=== PATIENT | female | born 1975 | race African-American/Black ===

== ENCOUNTER 2019-04-15 09:53 | Emergency (ER) | payer OTHER ==
[~2019-04-15] VITALS: Ht 170.2 cm; Wt 132.9 kg
[~2019-04-15 09:53] MED LIST: CLEOCIN HCL150 MG PO
[2019-04-15] MEDS ORDERED: ATENOLOL 25 MG25 M1 PO (10:09)
[2019-04-15] MEDS ORDERED: LOSARTAN-HCTZ1 EAC3 PO (10:09)
[2019-04-15] MEDS ORDERED: NORCO 10-325 T1 EACH PO (10:10)
[2019-04-15] MEDS ORDERED: AMLOD-VALSA-HC1 EAC1 PO (10:10)
[2019-04-15] MEDS ORDERED: CELEBREX 200 M200 M1 PO (10:11)
[2019-04-15] MEDS ORDERED: PROMETH-CODEIN 65 ML PO (11:16)
[2019-04-15] MEDS ORDERED: IBUPROFEN 800800 M1 PO (11:16)
[2019-04-15] MEDS ORDERED: ZOVIRAX200 MG PO (11:16)
[2019-04-15 12:56] VITALS: BP 164/65
== END 2019-04-15 12:35 | disposition home or self-care (01) ==
LOC: ER 09:53
DX: B00.1 Herpesviral vesicular dermatitis (principal); F17.210 Nicotine dependence, cigarettes, uncomplicated; Z98.890 Other specified postprocedural states; Z88.0 Allergy status to penicillin

== ENCOUNTER 2020-01-31 07:22 | Emergency (ER) | payer OTHER ==
[~2020-01-31] VITALS: Ht 170.2 cm; Wt 131.1 kg
[~2020-01-31 07:22] MED LIST changes: +AMLOD-VALSA-HC1 EAC1 PO; +ATENOLOL 25 MG25 M1 PO; +CELEBREX 200 M200 M1 PO; +IBUPROFEN 800800 M1 PO; +LOSARTAN-HCTZ1 EAC3 PO; +NORCO 10-325 T1 EACH PO; +PROMETH-CODEIN 65 ML PO; +ZOVIRAX200 MG PO
--- NOTE | 2020-01-31 08:05 | EKG ---
[facility] [place] [address] ELECTROCARDIOGRAM REPORT Name: HAYDER YOO Room #: PRE M.R.#: [id number] Admission: Attend Phys: Discharge: Date of : 73 Report #: [id number] THIS REPORT FOR: cc: Ulises Jordan MD [facility] THIS REPORT FOR: //name// [facility] ED Test Date: 2020-01-31 Test Time: 07:50:04 Pat Name: HAYDER YOO Department: Room: Gender: F Nurse Prn: n0 : 1975 Requested By: Jake Jamison Order Number: [id number] MD: Ulises Jordan Measurements Intervals Marshall Rate: 76 P: 33 MO: 167 QRS: 31 QRSD: 90 T: 73 QT: 400 QTc: 450 Interpretive Statements Sinus rhythm Nonspecific T wave abnormality No previous ECG available for comparison Electronically Signed On 01-31-2020 8:04:49 CDT by Ulises Jordan [email or web address] <ELECTRONICALLY SIGNED> By: Ulises Jordan MD, [facility] 01/31/20 0804 0750 0750 Ulises Jordan MD, FACC /EPI
[2020-01-31 08:24] LABS: HEMATOCRIT 42.1 % (37.0-47.0); HEMOGLOBIN 13.9 gm/dL (12.0-15.0); MCH 26.2 pg (26.0-34.0); MCHC 33.1 g/dL (28.0-37.0); MCV 79.2 fL (80.0-100.0); PLATELET COUNT 190 thou/uL (150-400); RBC 5.31 mil/uL (4.20-5.00); RDW 15.3 % (10.5-14.5); WBC 4.7 thou/uL (4.0-11.0)
[2020-01-31 08:29] LABS: ANION GAP 11 mmol/L (7-16); BUN 9 mg/dL (7-18); CALCIUM 8.3 mg/dL (8.5-10.1); CHLORIDE 105 mmol/L (98-107); CO2 25 mmol/L (21-32); CREATININE 1.1 mg/dL (0.6-1.0); GLUCOSE 170 mg/dL (74-106); POTASSIUM 3.8 mmol/L (3.5-5.1); SODIUM 141 mmol/L (136-145)
[2020-01-31 08:42] LABS: ALBUMIN 2.8 g/dL (3.4-5.0); LIPASE 95 U/L (73-393); MAGNESIUM 1.6 mg/dL (1.8-2.4); SGOT 21 U/L (15-37); SGPT 25 U/L (30-65); TOTAL BILIRUBIN 0.1 mg/dL (0.2-1.0); TOTAL PROTEIN 6.9 g/dL (6.4-8.2); TROPONIN-I <0.06 ng/mL (<0.06)
[2020-01-31 08:55] LABS: PROTIME 10.4 Seconds (9.3-11.4)
[2020-01-31 09:36] LABS: ABSOLUTE NEUTROPHILS 2.1 thou/uL (1.4-8.2); ATYPICAL LYMPHS 1 %; PLATELET ESTIMATE NORMAL
[2020-01-31 09:45] LABS: URINE BILIRUBIN NEGATIVE (Negative); URINE BLOOD 1+ (Negative); URINE CLARITY CLEAR; URINE COLOR YELLOW; URINE GLUCOSE-RANDOM* NEGATIVE (Negative); URINE KETONES NEGATIVE (Negative); URINE LEUKOCYTES-REFLEX NEGATIVE (Negative); URINE NITRITE-REFLEX NEGATIVE (Negative); URINE PROTEIN (DIPSTICK) NEGATIVE (Negative); URINE SPECIFIC GRAVITY 1.015 (1.005-1.035); URINE UROBILINOGEN 0.2 E.U./dl (0.2-1.0)
[2020-01-31 09:49] LABS: AMP/METHAMP Negative (Negative); BARBITURATES Negative (Negative); BENZODIAZEPINES Negative (Negative); COCAINE Negative (Negative); METHADONE Negative (Negative); OPIATES Negative (Negative); PCP Negative (Negative)
[2020-01-31 10:08] LABS: CASTS None Seen /LPF (None Seen); SQUAMOUS 0-3 Few /LPF (0-3)
[2020-01-31 10:09] LABS: BACTERIA-REFLEX 1-9 Few /HPF (None Seen); CRYSTALS None Seen /LPF (None Seen); URINE RBC 0-2 Rare /HPF (0-2); URINE WBC-REFLEX 0-5 Rare /HPF (0-5)
[2020-01-31 11:38] VITALS: BP 143/85
== END 2020-01-31 11:40 | disposition home or self-care (01) ==
LOC: ER 07:22
PROVIDERS: Emergency Medicine
DX: U07.1 COVID-19 (principal); J06.9 Acute upper respiratory infection, unspecified; I10 Essential (primary) hypertension; R60.0 Localized edema; F17.210 Nicotine dependence, cigarettes, uncomplicated; Z88.0 Allergy status to penicillin; Z79.899 Other long term (current) drug therapy

== ENCOUNTER 2020-02-01 19:32 | Emergency (ER) | payer OTHER ==
[~2020-02-01] VITALS: Ht 170.2 cm; Wt 131.1 kg
[2020-02-01 20:44] VITALS: BP 199/104
== END 2020-02-01 20:44 | disposition home or self-care (01) ==
LOC: ER 19:32
DX: U07.1 COVID-19 (principal); F17.210 Nicotine dependence, cigarettes, uncomplicated; Z98.890 Other specified postprocedural states; Z79.899 Other long term (current) drug therapy; Z88.0 Allergy status to penicillin

== ENCOUNTER 2020-05-15 20:45 | Emergency (ER) | payer OTHER ==
[~2020-05-15] VITALS: Ht 170.2 cm; Wt 118.4 kg
[2020-05-15 21:06] LABS: URINE BILIRUBIN NEGATIVE (Negative); URINE BLOOD 3+ (Negative); URINE CLARITY SL CLOUDY; URINE COLOR YELLOW; URINE GLUCOSE-RANDOM* NEGATIVE (Negative); URINE KETONES NEGATIVE (Negative); URINE LEUKOCYTES-REFLEX NEGATIVE (Negative); URINE NITRITE-REFLEX NEGATIVE (Negative); URINE PROTEIN (DIPSTICK) NEGATIVE (Negative); URINE UROBILINOGEN 0.2 E.U./dl (0.2-1.0)
[2020-05-15 21:18] LABS: CASTS None Seen /LPF (None Seen); CRYSTALS None Seen /LPF (None Seen); MUCUS 0-3 Light strn/LPF (None Seen); SQUAMOUS 0-3 Few /LPF (0-3); URINE WBC-REFLEX 0-5 Rare /HPF (0-5)
[2020-05-15 22:13] LABS: ABSOLUTE NEUTROPHILS 6.3 thou/uL (1.4-8.2); BASOPHILS 1.3 % (0.0-2.0); EOSINOPHILS 0.7 % (0.0-3.0); HEMATOCRIT 44.3 % (37.0-47.0); HEMOGLOBIN 14.3 gm/dL (12.0-15.0); LYMPHOCYTES 37.5 % (24.0-44.0); MCH 25.7 pg (26.0-34.0); MCHC 32.2 g/dL (28.0-37.0); MCV 79.7 fL (80.0-100.0); MONOCYTES 6.6 % (1.0-8.0); PLATELET COUNT 201 thou/uL (150-400); POLYS 53.9 % (36.0-66.0); RBC 5.56 mil/uL (4.20-5.00); RDW 15.1 % (10.5-14.5); WBC 11.8 thou/uL (4.0-11.0)
[2020-05-15 22:19] LABS: ANION GAP 8 mmol/L (7-16); BUN 15 mg/dL (7-18); CALCIUM 9.8 mg/dL (8.5-10.1); CHLORIDE 105 mmol/L (98-107); CO2 27 mmol/L (21-32); GLUCOSE 97 mg/dL (74-106); POTASSIUM 4.2 mmol/L (3.5-5.1); SODIUM 140 mmol/L (136-145)
[2020-05-15 22:24] LABS: ALBUMIN 3.4 g/dL (3.4-5.0); DIRECT BILIRUBIN < 0.1 mg/dL (<0.1-0.2); LIPASE 73 U/L (73-393); SGOT 20 U/L (15-37); SGPT 21 U/L (14-59); TOTAL BILIRUBIN 0.2 mg/dL (0.2-1.0); TOTAL PROTEIN 7.6 g/dL (6.4-8.2)
[2020-05-15] MEDS ORDERED: CARVEDILOL25 MG PO (22:26)
[2020-05-15] MEDS ORDERED: AMLODIPINE BESY10 MG PO (22:26)
[2020-05-16] MEDS ORDERED: IBUPROFEN 800800 M1 PO (00:45)
[2020-05-16] MEDS ORDERED: MEDROLDOSEPACK PO (00:45)
[2020-05-16] MEDS ORDERED: NORCO 5-325 TA1 EAC2 PO (00:45)
[2020-05-16] MEDS ORDERED: SENNA-DOCUSATE1 EAC1 PO (00:45)
[2020-05-16 00:56] VITALS: BP 153/96
== END 2020-05-16 00:58 | disposition home or self-care (01) ==
LOC: ER 20:45
PROVIDERS: Emergency Medicine
DX: R10.31 Right lower quadrant pain (principal); F17.210 Nicotine dependence, cigarettes, uncomplicated; Z79.899 Other long term (current) drug therapy; Z88.0 Allergy status to penicillin

== ENCOUNTER 2021-07-23 12:26 | Emergency (ER) | payer OTHER ==
[~2021-07-23] VITALS: Ht 170.2 cm; Wt 131.5 kg
[~2021-07-23 12:26] MED LIST changes: +AMLODIPINE BESY10 MG PO; +CARVEDILOL25 MG PO; +MEDROLDOSEPACK PO; +NORCO 5-325 TA1 EAC2 PO; +SENNA-DOCUSATE1 EAC1 PO
[2021-07-23 12:30] VITALS: BP 194/101
[2021-07-23 12:48] LABS: URINE BILIRUBIN NEGATIVE (Negative); URINE BLOOD TRACE (Negative); URINE CLARITY CLEAR; URINE COLOR YELLOW; URINE GLUCOSE-RANDOM* TRACE (Negative); URINE KETONES NEGATIVE (Negative); URINE LEUKOCYTES-REFLEX NEGATIVE (Negative); URINE NITRITE-REFLEX NEGATIVE (Negative); URINE PROTEIN (DIPSTICK) NEGATIVE (Negative); URINE UROBILINOGEN 0.2 E.U./dl (0.2-1.0)
== END 2021-07-23 14:39 | disposition home or self-care (01) ==
LOC: ER 12:26
PROVIDERS: Emergency Medicine
DX: S16.1XXA Strain of muscle, fascia and tendon at neck level, initial encounter (principal); S29.012A Strain of muscle and tendon of back wall of thorax, initial encounter; F17.210 Nicotine dependence, cigarettes, uncomplicated; Z79.899 Other long term (current) drug therapy; Z90.89 Acquired absence of other organs; V49.49XA Driver injured in collision with other motor vehicles in traffic accident, initial encounter; Y93.I9 Activity, other involving external motion; Y92.413 State road as the place of occurrence of the external cause; Y99.8 Other external cause status